=== PATIENT | female | born 1980 | race Caucasian/White ===

== ENCOUNTER 2021-03-12 11:19 | Emergency (ER) | payer MEDICARE, SELFPAY ==
[2021-03-12 11:34] VITALS: BP 129/91; PULSE 93; RESP 14; TEMP 37.1; O2SAT 99
--- NOTE | 2021-03-12 12:33 | ED.URI ---
HPI - URI/Sore Throat General Chief Complaint: Upper Respiratory Infection Stated Complaint: Sinus Pain Time Seen by Provider: 03/12/21 12:21 Source: patient and RN notes reviewed Mode of arrival: ambulatory Limitations: no limitations History of Present Illness HPI Narrative: Patient presents today complaining of a several month history of allergy symptoms with worsening symptoms over the last 4 days to include ear popping, nasal congestion with green and yellow nasal discharge. Denies fever, sore throat, cough. She has been using ibuprofen, Claritin, Sudafed, and saline nasal spray with mild relief. MD elicited complaint: nasal congestion Related Data Allergies Allergy/AdvReac Type Severity Reaction Status Date / Time acetaminophen Allergy Mild UNKNOWN Verified 03/12/21 11:38 hydrocodone Allergy Mild UNKNOWN Verified 03/12/21 11:38 Review of Systems Review of Systems: CONSTITUTIONAL: Denies body aches, fever, chills, or sweats. EYES: Denies visual changes, redness, or discharge. ENT: Denies rhinorrhea, sore throat. + Ear popping, nasal congestion CARDIOVASCULAR: Denies chest pain, palpitations, or edema. RESPIRATORY: Denies cough or dyspnea. GASTROINTESTINAL: Denies abdominal pain, nausea, vomiting, or diarrhea. GENITOURINARY: Denies dysuria or hematuria. SKIN: Denies rash, itching, or wounds. MUSCULOSKELETAL: Denies back pain, joint pain, or myalgia. NEUROLOGIC: Denies headache, numbness, tingling, or weakness. PSYCH: Denies depression or anxiety. [facility] Past Medical History Medical History (Updated 03/12/21 @ 12:38 by Alejandra Wood, [facility], ) Delivery with history of Comments At time of signature, I have reviewed and agree with nursing past medical, surgical, social and family history unless otherwise noted. Please see nursing chart for further information. There is no relevant family history pertinent to the presenting complaint Exam Narrative: GENERAL: Well-appearing, well-nourished, and in no acute distress. HEAD: Normocephalic, atraumatic. EYES: EOMI. No redness or drainage. Conjunctivae normal. ENT: Mucous membranes pink and moist. Nares congested with purulent discharge. TMs normal bilaterally. Throat normal. Uvula midline. NECK: Normal AROM. Supple. No lymphadenopathy. CHEST: No respiratory distress. Clear to auscultation. HEART: Regular rate and rhythm. No murmur appreciated. Normal peripheral pulses. EXTREMITIES: Normal range of motion. No edema. SKIN: Warm, dry, no rash. Capillary refill normal. Normal skin turgor. NEURO: No focal deficits. Alert and oriented x3. Gait steady. PSYCH: Normal affect. No signs of depression or anxiety. Course Vital Signs Vital signs: Vital Signs Temperature 98.8 F 03/12/21 11:34 Pulse Rate 93 03/12/21 11:34 Respiratory Rate 14 03/12/21 11:34 Blood Pressure 129/91 H 03/12/21 11:34 Pulse Oximetry 99 03/12/21 11:34 Temperature 98.8 F 03/12/21 11:34 Pulse Rate 93 03/12/21 11:34 Respiratory Rate 14 03/12/21 11:34 Blood Pressure 129/91 H 03/12/21 11:34 Pulse Oximetry 99 03/12/21 11:34 Reviewed. Pt has been instructed to follow up with her PCP regarding her elevated blood pressure today. MDM - URI/Sore Throat Differential Diagnosis Differential diagnosis: Likely upper respiratory infection, otitis media, sinusitis and viral infection Critical Care Time Critical Care Time Critical Care Time: No Discharge Plan Discharge Clinical Impression: Sinusitis Qualifiers: Sinusitis location: unspecified location Chronicity: acute Recurrence: non-recurrent Qualified Code(s): J01.90 - Acute sinusitis, unspecified Patient Disposition: Home, Self-Care Condition: Stable Instructions: Antibiotic Form, Sinusitis (ED) Additional Instructions: Please take the amoxicillin as prescribed until gone. Use Flonase, Sudafed, Claritin at home for your symptoms. Follow-up with your doctor in 1 week if symptoms are not impro
== END 2021-03-12 12:40 | disposition home or self-care (01) ==
PROVIDERS: Emergency Provider Nurse Practitioner
DX: J01.90 Acute sinusitis, unspecified (principal); M19.90 Unspecified osteoarthritis, unspecified site
CPT/HCPCS: 99213; G0463

== ENCOUNTER 2022-08-21 08:18 | Emergency (ER) | payer MEDICARE, SELFPAY ==
[2022-08-21 08:26] VITALS: BP 122/83; PULSE 84; RESP 16; TEMP 37.1; O2SAT 100
--- NOTE | 2022-08-21 08:59 | ED.URI ---
HPI - URI/Sore Throat General Chief Complaint: Upper Respiratory Infection Stated Complaint: cold / flu Time Seen by Provider: 08/21/22 08:30 Source: patient and RN notes reviewed History of Present Illness HPI Narrative: Patient is a 42-year-old female who presents to urgent care with complaints of 5 day history of fever, cough, sore throat, hoarseness, body aches and headaches. Patient states that she has been taking Mucinex for her symptoms. Denies any known ill exposures. Patient is requesting specific testing such as COVID, influenza and strep. No other acute complaints. No acute distress noted. Patient aware of the plan of care. Some parts of this dictation were generated by voice recognition software and may contain typographical and/or grammatical inaccuracies. Related Data Allergies Allergy/AdvReac Type Severity Reaction Status Date / Time acetaminophen Allergy Mild UNKNOWN Verified 08/21/22 08:41 hydrocodone Allergy Mild UNKNOWN Verified 08/21/22 08:41 Review of Systems Review of Systems: CONSTITUTIONAL: Reports of fever EYES: Denies visual changes, redness, or discharge. ENT: Reports of congestion, sore throat, hoarseness CARDIOVASCULAR: Denies chest pain, palpitations, or edema. RESPIRATORY: Reports of cough without dyspnea GASTROINTESTINAL: Denies abdominal pain, nausea, vomiting, or diarrhea. GENITOURINARY: Denies dysuria or hematuria. SKIN: Denies rash or itching. MUSCULOSKELETAL: Denies back pain, joint pain. Reports body aches NEUROLOGIC: Reports of headache All other systems reviewed are negative, except as documented in HPI. [facility] Past Medical History Medical History (Updated 08/21/22 @ 09:13 by ROBERT Fowler) Delivery with history of Comments At the time of my signature, I reviewed and agree with the nursing past medical, surgical, social, and family history. There is no relevant family history pertinent to the patient complaint. Exam Narrative: GENERAL: This is a well-nourished, well-developed patient, in no apparent distress. HEAD: normocephalic, atraumatic. EYES: PERRL. Sclera clear/white. Vision is grossly intact. EARS: External ears normal, auditory canals clear and without drainage, TMs normal without perforation. Hearing grossly intact. NOSE: External nose normal with no obvious nasal discharge, nares without redness, no rhinorrhea. THROAT: Mucous membranes moist, posterior pharynx clear. Absent tonsils. Mild postnasal drainage NECK: Neck supple, tender left submandibular lymphadenopathy CARDIOVASCULAR: Regular rate and rhythm RESPIRATORY: Clear to auscultation. Breath sounds equal bilaterally. No wheezes, rales, or rhonchi. SKIN: warm, intact with no suspicious lesions or rash, good texture and turgor. NEURO: awake, alert, and oriented to person, place and time. There were no obvious focal neurologic abnormalities. EXTREMITIES: No clubbing, cyanosis, or edema. Course Course Level of Care: Express Care Visit Vital Signs Vital signs: Vital Signs Temperature 98.8 F 08/21/22 08:26 Pulse Rate 84 08/21/22 08:26 Respiratory Rate 16 08/21/22 08:26 Blood Pressure 122/83 08/21/22 08:26 Pulse Oximetry 100 08/21/22 08:26 Oxygen Delivery Room Air 08/21/22 08:26 Temperature 98.8 F 08/21/22 08:26 Pulse Rate 84 08/21/22 08:26 Respiratory Rate 16 08/21/22 08:26 Blood Pressure 122/83 08/21/22 08:26 Pulse Oximetry 100 08/21/22 08:26 Oxygen Delivery Room Air 08/21/22 08:26 Reviewed MDM - URI/Sore Throat MDM Narrative Medical decision making narrative: Reviewed lab results with the patient. She is aware that strep swab was negative. Educated patient on culture we will call within 72 hours if culture is positive and antibiotics are necessary. Advised patient to use [id number] Mucinex for cough, Zyrtec or Claritin for postnasal drainage and sinus relief, Flonase nasal spray, and complete the steroid regimen as prescribed
== END 2022-08-21 09:16 | disposition home or self-care (01) ==
PROVIDERS: Emergency Provider Nurse Practitioner Family; PCP Family Medicine
DX: B34.9 Viral infection, unspecified (principal); J02.9 Acute pharyngitis, unspecified
CPT/HCPCS: 87081; 87880; 99213; G0463

== ENCOUNTER 2022-08-23 08:18 | Emergency (ER) | payer MEDICARE, SELFPAY ==
[2022-08-23 08:27] VITALS: BP 135/84; PULSE 104; RESP 16; TEMP 37.1; O2SAT 98
--- NOTE | 2022-08-23 08:45 | ED.EAR ---
HPI - Ear Problem General Chief complaint: Ear Stated complaint: Left Ear Pain Time Seen by Provider: 08/23/22 08:45 Source: patient, RN notes reviewed and old records reviewed Mode of arrival: ambulatory Limitations: no limitations History of Present Illness HPI Narrative: 42 year old female who presents to [facility] care with continued complaints of sinus congestion and drainage, cough, and now she has ear pain and pressure especially to her left ear. Patient was seen on Friday and given steroids and also given script for Flonase which patient states that she has been using. Patient reports that she continues to have green nasal drainage and feel stuffy, denies any shortness of breath or any wheezing. MD Complaint: ear pain Location: left ear Severity: moderate Discharge from ear: Reports no Treatment prior to arrival: other (Mucinex, steroid, and Flonase) Related Data Allergies Allergy/AdvReac Type Severity Reaction Status Date / Time acetaminophen Allergy Mild UNKNOWN Verified 08/21/22 08:41 hydrocodone Allergy Mild UNKNOWN Verified 08/21/22 08:41 Review of Systems Review of Systems: CONSTITUTIONAL: Reports malaise, chills, sweats, or fever. EYES: Denies visual changes, redness, or discharge. ENT: Reports rhinorrhea, congestion, sinus pain, left otalgia no sore throat. CARDIOVASCULAR: Denies chest pain, palpitations, or edema. RESPIRATORY: Reports cough.? Denies dyspnea. GASTROINTESTINAL: Denies abdominal pain, nausea, vomiting, diarrhea SKIN: Denies rash or itching. MUSCULOSKELETAL: Denies myalgia. NEUROLOGIC: Denies headache. All systems reviewed & are unremarkable except as noted in HPI and below PMFSH Past Medical History Medical History (Updated 08/23/22 @ 09:10 by Apoorva Fenton NP) Delivery with history of Seasonal allergies Sinusitis Surgical History Surgical History (Updated 08/23/22 @ 09:06 by Apoorva Fenton NP) H/O Spinal surgery Social History Social History (Updated 08/23/22 @ 09:07 by Apoorva Fenton NP) Smoking packs per day: 0.5 Smoking cigarettes per day: 10.0 Years smoked: 22 Smoking pack-years: 11.00 Smoking status: Current every day smoker Gender identity (if verbalized by the patient): Female Comments At time of signature, agree with nursing past medical, surgical, social and family history. There is no relevant family history pertinent to the presenting complaint Exam Narrative: GENERAL: Well-appearing, well-nourished, and in no acute distress. HEAD: Normocephalic EYES: PERRLA, conjunctivae clear ENT: Nares clear, turbinates edematous and erythematous, clear to green discharge. Mucous membranes moist Left TM red and bulging,right TM pearly weston with dull light reflex bilaterally; no tragal tenderness. Oropharynx erythematous without lesions. Tonsils not present and throat without exudate, no drooling, no hoarseness, no trismus, uvula midline. NECK: Supple. No lymphadenopathy CHEST: Clear to auscultation, breath sounds equal. No wheezing, rhonchi, rales, or stridor. No respiratory distress, speaks in full sentences.cough, SAO2 98% on room air HEART: Regular rate and rhythm. No murmur heard. SKIN: Warm, dry, no rash. NEURO: Alert and oriented x3. PSYCH: Normal mood and affect Course Course Emergency Course: Patient is aware of diagnosis, understands and agrees to treatment plan.? Anticipatory guidance given.? Patient agrees to follow-up as directed and is aware of reasons to seek care at the emergency department. Portions of this record may have been created with voice recognition software Level of Care: Express Care Visit Vital Signs Vital signs: Vital Signs Temperature 37.1 C 08/23/22 08:27 Pulse Rate 104 H 08/23/22 08:27 Respiratory Rate 16 08/23/22 08:27 Blood Pressure 135/84 08/23/22 08:27 Pulse Oximetry 98 08/23/22 08:27 Oxygen Delivery Room Air 08/23/22 08:27 Temperature 37.1 C
== END 2022-08-23 09:00 | disposition home or self-care (01) ==
PROVIDERS: Emergency Provider Registered Nurse; PCP Family Medicine
DX: H66.92 Otitis media, unspecified, left ear (principal); J06.9 Acute upper respiratory infection, unspecified; F17.210 Nicotine dependence, cigarettes, uncomplicated
CPT/HCPCS: 99213; G0463